=== PATIENT | female | born 1955 | race Two or more races ===

== ENCOUNTER 2017-11-06 10:58 | Emergency (ER) | payer MEDICAID ==
[~2017-11-06] VITALS: Ht 157.5 cm; Wt 45.4 kg
[2017-11-06] MEDS ORDERED: CIPRO500 MG PO (11:10)
[2017-11-06 11:12] VITALS: BP 116/72
[2017-11-06] MEDS ORDERED: Isovue-300 100ml vial INJ PRN (11:30)
[2017-11-06] MEDS ORDERED: Morphine Sulfate 4mg/ml Inj (IV USE ONLY) IVP ONE (11:30)
[2017-11-06] MEDS ORDERED: Morphine Sulfate 4mg/ml Inj (IV USE ONLY) ONE (11:48)
[2017-11-06 11:56] LABS: APPEARANCE,URINE CLEAR; BILIRUBIN, URINE NEGATIVE (NEGATIVE); GLUCOSE, URINE (UA) NEGATIVE (NEGATIVE); KETONES,URINE NEGATIVE (NEGATIVE); LEUKOCYTE ESTERASE ,URINE 2+ (NEGATIVE); NITRITE,URINE NEGATIVE (NEGATIVE); PH,URINE 6 (4.5-8.0); PROTEIN,URINE 3+ (NEGATIVE); UROBILINOGEN,URINE 1 MG/DL (0.0-1.0)
[2017-11-06 11:57] LABS: BASOPHILS % (AUTO) 0.9 % (0.0-2.0); COLOR,URINE YELLOW; EOSINOPHILS % (AUTO) 0.2 % (0.0-3.0); HEMATOCRIT 36.8 % (37.0-47.0); HEMOGLOBIN 12.2 G/DL (12.0-16.0); LYMPHOCYTES % (AUTO) 12.7 % (20.0-45.0); MEAN CORPUSCULAR VOLUME 93 FL (80-99); MONOCYTES % (AUTO) 11.8 % (1.0-10.0); NEUTROPHILS % (AUTO) 74.4 % (45.0-75.0); PLATELET COUNT 177 K/UL (150-450); RED BLOOD COUNT 3.97 M/UL (4.20-5.40); RED CELL DISTRIBUTION WIDTH 12.1 % (11.6-14.8); WHITE BLOOD COUNT 4.8 K/UL (4.8-10.8)
[2017-11-06 12:07] LABS: ANION GAP 7 mmol/L (5-15); BLOOD UREA NITROGEN 26 mg/dL (7-18); CALCIUM 8.9 MG/DL (8.5-10.1); CARBON DIOXIDE 26 MMOL/L (21-32); CHLORIDE 101 MMOL/L (98-107); CREATININE 0.8 MG/DL (0.55-1.30); POTASSIUM 4.1 MMOL/L (3.5-5.1); SODIUM 134 MMOL/L (136-145)
[2017-11-06 12:11] LABS: ALANINE AMINOTRANSFERASE 62 U/L (12-78); ALBUMIN 2.6 G/DL (3.4-5.0); ALBUMIN/GLOBULIN RATIO 0.6 (1.0-2.7); ALKALINE PHOSPHATASE 215 U/L (46-116); ASPARTATE AMINO TRANSFERASE 61 U/L (15-37); BILIRUBIN,TOTAL 0.4 MG/DL (0.2-1.0)
--- NOTE | 2017-11-06 13:10 | Diagnostic Imaging Report ---
Clinical Indication: Abdominal pain Technique: No oral contrast utilized, per emergency room physician request IV administration nonionic contrast. Venous phase spiral acquisition obtained through the abdomen and pelvis. Multiplanar reconstructions were generated. Total dose length product 492.76 mGycm. CTDIvol(s) 9.98 mGy. Dose reduction achieved using automated exposure control Comparison: none Findings: There is patchy distribution of diminished contrast opacification throughout much of the left kidney. It appears slightly edematous as well. The right kidney is unremarkable. No hydronephrosis, hydroureter, renal or ureteral calculi demonstrated. Lack of enteric contrast limits assessment of the GI tract. The appendix is normal. No definite evidence of diverticulosis or diverticulitis. No small bowel distention. No free or loculated intraperitoneal gas or fluid is evident. The distal esophagus, stomach, duodenum are unremarkable. The liver demonstrates focal fatty change in the usual location adjacent to the falciform ligament. It is otherwise unremarkable. The gallbladder, bile ducts, pancreas, spleen, adrenals are all unremarkable. Normal uterus and adnexal structures. No pelvic mass or adenopathy. No retroperitoneal or mesenteric mass or adenopathy. The included lung bases demonstrate posterior dependent atelectatic changes, are otherwise unremarkable. The bones demonstrate degenerative spondylosis changes. Impression: Abnormal appearance to the left kidney, with patchy striated nephrogram, appearance suggestive of acute bacterial nephritis. Correlate with clinical and laboratory findings Limited assessment of the GI tract, due to lack of enteric contrast administration Incidental findings as noted, including posterior dependent atelectatic changes, degenerative spondylosis, focal fatty change in the liver The CT scanner at [facility] is accredited by the [employer] and the scans are performed using protocols designed to limit radiation exposure to as low as reasonably achievable to attain images of sufficient resolution adequate for diagnostic evaluation.
[2017-11-06] MEDS ORDERED: RANITIDINE HCL150 MG ORAL (13:29)
[2017-11-06] MEDS ORDERED: CEPHALEXIN500 MG ORAL (13:29)
[2017-11-06 13:47] VITALS: BP 118/70
--- NOTE | 2017-11-06 14:00 | Emergency Room Report ---
History of Present Illness General Chief Complaint: Female Urogenital Problems Source: Patient Present Illness HPI 62-year-old female presents ED for evaluation. Presenting with abdominal pain vomiting and diarrhea. Started about 10 days ago. Pain is cramping, epigastric , 8 out of 10, nonradiating. Denies fevers or chills. Denies chest pain shortness of breath. Patient states she was seen by her PMD and noted to have UTI. Was started on Cipro. Did not start the medication yet. No other aggravating relieving factors. Denies any other associated symptoms Allergies: Coded Allergies: No Known Allergies (Unverified , 11/06/17) Patient History Past Medical History: none Past Surgical History: none Pertinent Family History: none Social History: Denies: smoking, alcohol use, drug use Now: No Immunizations: UTD Reviewed Nursing Documentation: PMH: Agreed; PSxH: Agreed Nursing Documentation-PMH Past Medical History: No Stated History Review of Systems All Other Systems: negative except mentioned in HPI Physical Exam Vital Signs Date Time Temp Pulse Resp B/P (MAP) Pulse Ox O2 Delivery O2 Flow Rate FiO2 11/06/17 11:05 98.0 65 18 116/72 98 Room Air 98.1 Sp02 EP Interpretation: reviewed, normal General Appearance: no apparent distress, alert, GCS 15, non-toxic Head: normocephalic, atraumatic Eyes: bilateral eye normal inspection, bilateral eye PERRL ENT: hearing grossly normal, normal pharynx, no angioedema, normal voice Neck: full range of motion, supple/symm/no masses Respiratory: chest non-tender, lungs clear, normal breath sounds, speaking full sentences Cardiovascular #1: regular rate, rhythm, no edema Cardiovascular #2: 2+ carotid (R), 2+ carotid (L), 2+ radial (R), 2+ radial (L) , 2+ dorsalis pedis (R), 2+ dorsalis pedis (L) Gastrointestinal: normal bowel sounds, soft, non-distended, no guarding, no rebound, tenderness - epigastric Rectal: deferred Genitourinary: normal inspection, no CVA tenderness Musculoskeletal: back normal, gait/station normal, normal range of motion, non- tender Neurologic: alert, oriented x3, responsive, motor strength/tone normal, sensory intact, speech normal Psychiatric: judgement/insight normal, memory normal, mood/affect normal, no suicidal/homicidal ideation Reflexes: 3+ bicep (R), 3+ bicep (L), 3+ tricep (R), 3+ tricep (L), 3+ knee (R) , 3+ knee (L) Skin: normal color, no rash, warm/dry, well hydrated Lymphatic: no adenopathy Medical Decision Making Diagnostic Impression: Primary Impression: Nephritis Additional Impression: Gastritis Qualified Codes: K29.50 - Unspecified chronic gastritis without bleeding ER Course Hospital Course 62-year-old F presents to ED with abdominal pain, diarrhea Differential diagnosis includes-appendicitis, cholecystitis, small bowel obstruction, gastritis, Clinical course Patient placed on stretcher. After initial history and physical I ordered labs , IV fluids, pain medications and CT scan Labs - no leukocytosis, electrolytes ok, LFTs normal, UA unremarkable EKG - NSR, no acute ischemic changes interpreted by me CT scan bacterial nephritis Discussed findings with patient. Patient afebrile, nontoxic. No fever. Leukocytosis. Normal BUS/creatinine. Patient states for discharge. Close outpatient follow-up. I will prescribe Keflex and Zantac I feel this is a highly complex case requiring extensive working including EKG/ Rhythm strip, Xray/CT/US, Blood/urine lab work, repeat exams while in ED, and administration of strong opiates/narcotics for pain control, admission to hospital or close patient follow up. Diagnosis - nephritis, gastritis Stable and discharged to home with Rx Keflex, Zantac. Followup with PMD. Return to ED if symptoms recur or worsen Labs Test 11/06/17 11:40 White Blood Count 4.8 K/UL (4.8-10.8) Red Blood Count 3.97 M/UL (4.20-5.40) Hemoglobin 12.2 G/DL (12.0-16.0) Hematocrit 36.8 % (37.0-47.0) Mean Corpuscular Volume 93 FL (80-99) Mean Corpuscular Hemoglobin 30.6 PG (27.0-31.0) Mean Corpuscular Hemoglobin Concent 33.1 G/DL (32.0-36.0) Red Cell Distribution Width 12.1 % (11.6-14.8) Platelet Count 177 K/UL (150-450) Mean Platelet Volume 8.3 FL (6.5-10.1) Neutrophils (%) (Auto) 74.4 % (45.0-75.0) Lymphocytes (%) (Auto) 12.7 % (20.0-45.0) Monocytes (%) (Auto) 11.8 % (1.0-10.0) Eosinophils (%) (Auto) 0.2 % (0.0-3.0) Basophils (%) (Auto) 0.9 % (0.0-2.0) Urine Color Yellow Urine Appearance Clear Urine pH 6 (4.5-8.0) Urine Specific [place] 1.015 (1.005-1.035) Urine Protein 3+ (NEGATIVE) Urine Glucose (UA) Negative (NEGATIVE) Urine Ketones Negative (NEGATIVE) Urine Blood 2+ (NEGATIVE) Urine Nitrite Negative (NEGATIVE) Urine Bilirubin Negative (NEGATIVE) Urine Urobilinogen 1 MG/DL (0.0-1.0) Urine Leukocyte Esterase 2+ (NEGATIVE) Urine RBC 2-4 /HPF (0 - 2) Urine WBC 2-4 /HPF (0 - 2) Urine Squamous Epithelial Cells Occasional /LPF Urine Bacteria Few /HPF (NONE) Urine Mucus Few /LPF (NONE/OCC) Sodium Level 134 MMOL/L (136-145) Potassium Level 4.1 MMOL/L (3.5-5.1) Chloride Level 101 MMOL/L (98-107) Carbon Dioxide Level 26 MMOL/L (21-32) Anion Gap 7 mmol/L (5-15) Blood Urea Nitrogen 26 mg/dL (7-18) Creatinine 0.8 MG/DL (0.55-1.30) Estimat Glomerular Filtration Rate > 60 mL/min (>60) Glucose Level 90 MG/DL (74-106) Calcium Level 8.9 MG/DL (8.5-10.1) Total Bilirubin 0.4 MG/DL (0.2-1.0) Aspartate Amino Transf (AST/SGOT) 61 U/L (15-37) Alanine Aminotransferase (ALT/SGPT) 62 U/L (12-78) Alkaline Phosphatase 215 U/L (46-116) Troponin I 0.000 ng/mL (0.000-0.056) Total Protein 6.7 G/DL (6.4-8.2) Albumin 2.6 G/DL (3.4-5.0) Globulin 4.1 g/dL Albumin/Globulin Ratio 0.6 (1.0-2.7) Lipase 88 U/L (73-393) EKG Diagnostic Results Rate: normal Rhythm: NSR ST Segments: no acute changes ASA given to the pt in ED: No Rhythm Strip Diag. Results EP Interpretation: yes Rhythm: NSR, no PVC's, no ectopy CT/MRI/US Diagnostic Results CT/MRI/US Diagnostic Results : Imaging Test Ordered: CT A/P Impression bacterial nephritis Last Vital Signs Date Time Temp Pulse Resp B/P (MAP) Pulse Ox O2 Delivery O2 Flow Rate FiO2 11/06/17 13:47 98.1 18 116/72 98 Room Air 98.1 11/06/17 13:47 89 Status: improved Disposition: HOME, SELF-CARE Condition: Stable Scripts Ranitidine Hcl* (ZANTAC*) 150 Mg Tablet 150 MG ORAL TWICE A DAY, #30 TAB Prov: Carter Merino MD 11/06/17 Cephalexin* (KEFLEX*) 500 Mg Capsule 500 MG ORAL EVERY 6 HOURS for 7 Days, CAP Prov: Carter Merino MD 11/06/17 Departure Forms: Return to Work Return to Work Date: Nov 08, 2017 Work Restrictions: None Patient Instructions: Pyelonephritis, Adult Carter Merino MD Nov 06, 2017 14:00
--- NOTE | 2017-11-07 14:48 | Cardiology Report ---
APPROVED REPORT EKG Measurement Heart [id number] ME [id number] Normal sinus rhythm Normal ECG
== END 2017-11-06 13:44 | disposition home or self-care (01) ==
LOC: EMR 11:20
DX: N05.8 Unspecified nephritic syndrome with other morphologic changes (principal); K29.50 Unspecified chronic gastritis without bleeding; B96.89 Other specified bacterial agents as the cause of diseases classified elsewhere
CPT/HCPCS: 36415; 74177; 80053; 81003; 83690; 84484; 85025; 93005; 96361; 96374; 96375; 99284; J2270; J2405; Q9967

== ENCOUNTER 2018-08-24 10:16 | Emergency (ER) | payer MEDICAID ==
[~2018-08-24] VITALS: Ht 157.5 cm; Wt 43.1 kg
[~2018-08-24 10:16] MED LIST: CEPHALEXIN500 MG ORAL; CIPRO500 MG PO; RANITIDINE HCL150 MG ORAL
[2018-08-24 10:30] VITALS: BP 132/75
--- NOTE | 2018-08-24 10:30 | NUR ---
ED Nurse Note: pt walked in to ED with daughter due to lower back pain that started yesterday. pt denies any urinary problem. having hard time walking due to pain. no recent injury reported. AAO x4. respirations even and non-labored noted. will wait for the further order.
[2018-08-24] MEDS ORDERED: Ketorolac 30mg Inj IM ONE (11:00)
[2018-08-24] MEDS ORDERED: oxyCODONE HCL/Acetaminophen 5/325mg PO ONE (11:00)
--- NOTE | 2018-08-24 11:46 | Diagnostic Imaging Report ---
Indication: Status post injury Technique: XRAY Pelvis 1v Comparison: None Findings: Bone mineralization within normal limits. No radiographically appreciable acute fracture. Hip joints, sacroiliac joints and symphysis pubis maintained. Mild colonic stool is noted. There are degenerative changes in the lower lumbar spine. No radiopaque foreign body. Impression: No evidence of acute fracture or dislocation.
--- NOTE | 2018-08-24 11:49 | Diagnostic Imaging Report ---
Indication: Pain status post injury Technique: AP views of the lumbar spine Comparison: Images of the lumbar spine from CT of the abdomen and pelvis 11/06/2017 Findings: 5 nonrib-bearing lumbar-type vertebral bodies. No acute lumbar spine fractures identified. There is grade 1 anterolisthesis of L4 on L5 which is unchanged compared to the prior exam. Degenerative changes in the spine are noted with disc space narrowing most pronounced at L5-S1. Sacroiliac joints imaged hip joints maintained. Impression: No evidence of acute lumbar spine fracture. Grade 1 anterolisthesis of L4 on L5, similar to exam of 11/06/2017 (sagittal images through the lumbar spine on CT of the abdomen and pelvis).
[2018-08-24] MEDS ORDERED: COLACE100 MG ORAL (12:02)
[2018-08-24] MEDS ORDERED: IBUPROFEN600 MG ORAL (12:02)
[2018-08-24] MEDS ORDERED: BISACODYL5 MG ORAL (12:02)
[2018-08-24] MEDS ORDERED: NORCO 5-325 TA1 EACH ORAL (12:02)
[2018-08-24 12:14] VITALS: BP 117/70
--- NOTE | 2018-08-24 12:16 | NUR ---
ER DISCHARGE NOTE: Patient is cleared to be discharged per ERMD with daughter, pt is aox4, on room air, with stable vital signs. pt was given dc and prescription instructions, pt was able to verbalize understanding, pt id band removed. pt is able to ambulate with steady gait. pt took all belongings.
--- NOTE | 2018-08-24 12:45 | Emergency Room Report ---
History of Present Illness General Chief Complaint: Back Pain-No Injury Source: Patient Present Illness HPI Patient states that she was trying to get out of bed a couple days ago and twisted her back. Since then she said significant lower back pain is having difficulty ambulating. She denies any neck pain chest pain shortness of breath. Denies any direct trauma. Denies any dysuria urinary frequency or difficulty with urination or perineal anesthesia. No other complaints are noted. Symptoms noted to be severe. No other modifying factors. No other associated signs and symptoms. No other complaints were noted. Allergies: Coded Allergies: No Known Allergies (Unverified , 11/06/17) Patient History Past Medical History: other - Osteoporosis Past Surgical History: none Pertinent Family History: none Social History: Denies: smoking, alcohol use, drug use Reviewed Nursing Documentation: PMH: Agreed; PSxH: Agreed Nursing Documentation-PMH Past Medical History: No History, Except For Review of Systems All Other Systems: negative except mentioned in HPI Physical Exam Vital Signs Date Time Temp Pulse Resp B/P (MAP) Pulse Ox O2 Delivery O2 Flow Rate FiO2 08/24/18 10:22 98.2 82 16 132/75 (94) 98 Room Air Sp02 EP Interpretation: reviewed, normal General Appearance: normal inspection, well appearing, no apparent distress, alert Head: atraumatic Eyes: bilateral eye normal inspection ENT: normal ENT inspection, hearing grossly normal, normal voice Neck: normal inspection, full range of motion, supple, no bony tend Respiratory: normal inspection, lungs clear, normal breath sounds, no respiratory distress, no retraction, no wheezing Cardiovascular #1: regular rate, rhythm, no edema Gastrointestinal: normal inspection, normal bowel sounds, non tender, soft, no guarding, no hernia Genitourinary: no CVA tenderness Musculoskeletal: normal inspection, back normal, normal range of motion Neurologic: normal inspection, alert, responsive, speech normal Psychiatric: normal inspection, judgement/insight normal, mood/affect normal Skin: normal inspection, normal color, no rash Medical Decision Making Diagnostic Impression: Primary Impression: Back pain ER Course Patient presents emergency department today complaint severe lower back pain. Differential considerations include fracture dislocation versus strain. Given patient's presentation I feel the x-rays were indicated. X-rays were noted to be negative. There was evidence of constipation however. I feel the patient would benefit from stool softeners. Patient was also given prescription for pain medications. Patient is advised to follow up with primary doctor in 2-3 days and return the emergency room for any worsening symptoms and as needed. Other X-Ray Diagnostic Results Other X-Ray Diagnostic Results : X-Ray ordered: Pelvis and L-spine: Interpreted by radiology to be negative Last Vital Signs Date Time Temp Pulse Resp B/P (MAP) Pulse Ox O2 Delivery O2 Flow Rate FiO2 08/24/18 12:14 98.0 70 17 117/70 99 Room Air Status: improved Disposition: HOME, SELF-CARE Condition: Stable Scripts Bisacodyl* (DULCOLAX*) 5 Mg Tablet.dr 5 MG ORAL DAILY PRN for Constipation, #10 TAB 0 Refills Prov: Antolin Tirado MD 08/24/18 Docusate Sodium* (COLACE*) 100 Mg Capsule 100 MG ORAL THREE TIMES A DAY for 14 Days, CAP Prov: Antolin Tirado MD 08/24/18 Ibuprofen* (MOTRIN*) 600 Mg Tablet 600 MG ORAL Q8H PRN for For Pain, #10 TAB 0 Refills Prov: Antolin Tirado MD 08/24/18 Hydrocodone Bit/Acetaminophen 5-325* (NORCO 5-325*) 1 Each Tablet 1 TAB ORAL Q6H PRN for For Pain, #20 TAB 0 Refills Prov: Antolin Tirado MD 08/24/18 Referrals: [facility],REFERRING (PCP) Patient Instructions: Sciatica, Back Pain, Adult, Arthritis, Constipation, Adult, [id number] Antolin Tirado MD Aug 24, 2018 12:45
== END 2018-08-24 12:14 | disposition home or self-care (01) ==
LOC: EMR 11:42
DX: M54.5 Low back pain (principal); M81.0 Age-related osteoporosis without current pathological fracture
CPT/HCPCS: 72020; 72170; 96372; 99284; J1885